=== PATIENT | female | born 2000 | race Caucasian/White ===

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

== ENCOUNTER 2022-10-29 21:52 | Inpatient (IN) | payer BC ==
[2022-10-29] MEDS ORDERED: LIDOCAINE 0.5% (PF) 5 MG/ML (50 ML SDV) SQ PRN (22:45)
[2022-10-29] MEDS ORDERED: TRANEXAMIC 1,000 MG/100ML-NACL 1,000 MG in EMPTY BAG 1 BAG IV PRN (22:45)
[2022-10-29] MEDS ORDERED: METHYLERGONOVINE 0.2 MG/ML 1 ML AMP IM PRN (22:45)
[2022-10-29] MEDS ORDERED: OXYTOCIN 30 UNITS/500 ML NS 30 UNIT in SALINE 1 500ML.BAG IV SCH (22:45)
[2022-10-29] MEDS ORDERED: CARBOPROST TROMETHAMINE 250 MCG/ML 1 ML AMP IM PRN (22:45)
[2022-10-29] MEDS ORDERED: OXYTOCIN 10 UNIT/ML 1 ML VIAL IM PRN (22:45)
[2022-10-29] MEDS ORDERED: miSOPROStoL 200 MCG TAB PO PRN (22:45)
[2022-10-29] MEDS ORDERED: TERBUTALINE 1 MG/ML VIAL SQ PRN (22:45)
[2022-10-29 22:55] LABS: Basophils # (A) 0.1 k/uL (0-0.2); Basophils % (A) 1 %; Eosinophils # (A) 0.2 k/uL (0-0.7); Eosinophils % (A) 2 %; HCT 32.2 % (34.0-46.0); HGB 11.5 gm/dL (11.4-16.0); Lymphocytes # (A) 2.1 k/uL (1.0-4.8); Lymphocytes % (A) 20 %; MCH 28.4 pg (25.0-35.0); MCHC 35.6 g/dL (31.0-37.0); MCV 79.7 fL (80.0-100.0); Mean Platelet Volume 7.8; Monocytes # (A) 0.7 k/uL (0-1.0); Monocytes % (A) 6 %; Neutrophils # (A) 7.1 k/uL (1.3-7.7); Neutrophils % (A) 69 %; Platelet Count 197 k/uL (150-450); RBC 4.04 m/uL (3.80-5.40); RDW 14.5 % (11.5-15.5); WBC 10.3 k/uL (3.8-10.6)
--- NOTE | 2022-10-30 00:13 | US ---
EXAM: US , Limited CLINICAL HISTORY: ITS.REASON US Reason: to verify position of fetus TECHNIQUE: Real-time limited ultrasound of the maternal uterus with image documentation. COMPARISON: No relevant prior studies available. FINDINGS: Position: Fetus is in vertex presentation. Heart rate: heart rate is 165 bpm. Other findings: No previous studies. IMPRESSION: Single viable intrauterine gestation in vertex presentation.
[2022-10-30] MEDS: LACTATED RINGERS 1,000 ML IV SCH ×3 (02:15→23:55)
--- NOTE | 2022-10-30 02:57 | P.HPOB ---
History of Present Illness H&P Date: 10/30/22 Chief Complaint: SROM 22 year old presents at 37 weeks 5 days with SROM since around 8 am yesterday morning. She was advised to come to the hospital right away but patien t refused and came when she is started having contractions over 12 hours later. Her cervix was 3/80/-2. She was felisha every 2-4 minutes. heart tones category 1. Review of Systems All systems: negative Constitutional: Denies chills, Denies fever Eyes: denies blurred vision, denies pain Ears, nose, mouth and throat: Denies headache, Denies sore throat Cardiovascular: Denies chest pain, Denies shortness of breath Respiratory: Denies cough Gastrointestinal: Denies abdominal pain, Denies diarrhea, Denies nausea, Denies vomiting Genitourinary: Denies dysuria, Denies hematuria Musculoskeletal: Denies myalgias Integumentary: Denies pruritus, Denies rash Neurological: Denies numbness, Denies weakness Psychiatric: Denies anxiety, Denies depression Endocrine: Denies fatigue, Denies weight change Past Medical History Past Medical History: Thyroid Disorder Additional Past Medical History / Comment(s): Hypothyroidism History of Any Multi-Drug Resistant Organisms: None Reported Past Surgical History: No Surgical Hx Reported Past Anesthesia/Blood Transfusion Reactions: No Reported Reaction Past Psychological History: No Psychological Hx Reported Smoking Status: Never smoker Past Alcohol Use History: None Reported Past Drug Use History: None Reported - Past Family History Mother Additional Family Medical History / Comment(s): heart defect, cardiomyopathy Medications and Allergies Home Medications Medication Instructions Recorded Confirmed Type Pnv No.154/Iron Fum/Folic Acid 1 capsule PO DAILY 10/29/22 10/29/22 History [ Plus Vitamin Tablet] Allergies Allergy/AdvReac Type Severity Reaction Status Date / Time No Known Allergies Allergy Verified 10/29/22 22:16 Exam Osteopathic Statement: *. No significant issues noted on an osteopathic structural exam other than those noted in the History and Physical/Consult. Vital Signs Temp Pulse Resp BP 10/29/22 22:21 97.5 F L 75 16 120/82 Intake and Output 10/29/22 10/29/22 10/30/22 14:59 22:59 06:59 Other: Weight 64.41 kg Heart: Regular rate and rhythm Lungs: Clear to auscultation bilaterally Abdomen: Soft, nontender Extremities: Negative Homans sign Results Result Diagrams: 10/29/22 22:40 Abnormal Lab Results - Last 24 Hours (Table) 10/29/22 Range/Units 22:40 Hct 32.2 L (34.0-46.0) % MCV 79.7 L (80.0-100.0) fL Assessment and Plan (1) SROM (spontaneous rupture of membranes) Current Visit: Yes Status: Acute Code(s): UVB7296 - SNOMED Code(s): 297674638 (2) 37 weeks gestation of Current Visit: Yes Status: Acute Code(s): Z3A.37 - 37 WEEKS GESTATION OF SNOMED Code(s): 38713352 Plan: 1. admit to [facility] 2. expectant management-pt refuses antibiotics and pitocin. 3. anticipate normal vaginal delivery
[2022-10-30] MEDS ORDERED: HYDROCORTISONE 2.5% RECTAL CREAM 30 GM TUBE RECTAL PRN (03:00)
[2022-10-30] MEDS ORDERED: ZOLPIDEM 5 MG TAB PO PRN (03:00)
[2022-10-30] MEDS ORDERED: diphenhydrAMINE 25 MG CAP PO PRN (03:00)
[2022-10-30] MEDS ORDERED: OXYTOCIN 30 UNITS/500 ML NS 30 UNIT in SALINE 1 500ML.BAG IV SCH (03:00)
[2022-10-30] MEDS ORDERED: BENZOCAINE/MENTHOL SPRAY 1 GM/SPRAY AEROSOL TOPICAL PRN (03:00)
[2022-10-30] MEDS ORDERED: LANOLIN CREAM 5 GM TUBE TOPICAL PRN (03:00)
[2022-10-30] MEDS ORDERED: diphenhydrAMINE 50 MG CAP PO PRN (03:00)
[2022-10-30] MEDS ORDERED: ACETAMINOPHEN TAB 325 MG TAB PO PRN (03:00)
[2022-10-30] MEDS ORDERED: diphenhydrAMINE 50 MG/ML 1 ML VIAL IVP PRN ×2 (03:00)
[2022-10-30] MEDS ORDERED: SIMETHICONE 80 MG CHEWABLE PO PRN (03:00)
--- NOTE | 2022-10-30 03:00 | P.PROBDLV ---
Vaginal Delivery Note - . Vaginal Delivery Note: 22 year old presents at 37 weeks 5 days with SROM since around 8 am yesterday morning. She was advised to come to the hospital right away but patient refused and came when she is started having contractions over 12 hours later. Her cervix was 3/80/-2. She was felisha every 2-4 minutes. heart tones category 1. Pt was completely dilated by 2 am. She pushed and delivered a viable female over intact perineum at 0224. Dr Chau was present for delivery and it was unremarkable. I presented when she was delivered for 4 minutes. I clamped and cut the cord after 5 minutes at request of the patient. Placenta delivered spontaneously, intact with 3 vessel cord at 0230. Vagina, cervix and perineum inspected. Second-degree perineal laceration and a periurethral laceration repaired with 3-0 Vicryl. Estimated blood loss 400 mL. Mother and baby in stable condition.
[2022-10-30] MEDS: IBUPROFEN 600 MG TAB PO PRN ×2 (03:34→22:24)
[2022-10-30] MEDS: SENNOSIDES-DOCUSATE SODIUM 1 EACH TAB PO SCH ×2 (08:17→22:23)
[2022-10-30 23:52] VITALS: TEMP 98
[2022-10-31 07:36] LABS: Basophils # (A) 0.1 k/uL (0-0.2); Basophils % (A) 0 %; Eosinophils # (A) 0.2 k/uL (0-0.7); Eosinophils % (A) 1 %; Lymphocytes # (A) 2.5 k/uL (1.0-4.8); Lymphocytes % (A) 19 %; MCH 28.2 pg (25.0-35.0); MCHC 34.2 g/dL (31.0-37.0); MCV 82.4 fL (80.0-100.0); Mean Platelet Volume 7.3; Monocytes # (A) 0.7 k/uL (0-1.0); Monocytes % (A) 5 %; Neutrophils # (A) 9.9 k/uL (1.3-7.7); Neutrophils % (A) 73 %; Platelet Count 203 k/uL (150-450); Poikilocytosis Slight; RBC 2.91 m/uL (3.80-5.40); RDW 15.1 % (11.5-15.5); WBC 13.6 k/uL (3.8-10.6)
[2022-10-31 07:52] LABS: HGB 8.2 gm/dL (11.4-16.0)
[2022-10-31 09:17] VITALS: BP 115/71; PULSE 79; RESP 18
[2022-10-31] MEDS: SENNOSIDES-DOCUSATE SODIUM 1 EACH TAB PO SCH (09:28)
--- NOTE | 2022-10-31 10:22 | P.DS ---
Providers Date of admission: 10/29/22 22:20 Expected date of discharge: 10/31/22 Attending physician: Salo Figueredo Primary care physician: Stated None Hospital Course: This is a 22-year-old female 2 para 1 at 37-6/7 weeks who presented in active labor. She delivered a viable female with scores of 9 at 1 minute and 9 at 5 minutes and weight of 6 lbs. 13 oz. on 10/30/2022 rather precipitously. She did have some heavier bleeding with delivery but it has slowed significantly and she denies having any heavy bleeding or clots since that time. She denies any shortness of breath, dizziness, or lightheadedness. Her pain is well-controlled with ibuprofen. She is breast-feeding. Vital signs are stable. Abdomen soft with fundus firm and nontender. Extremities show negative Homans. Impression is status post vaginal delivery day #1, acute blood loss anemia. Plan is to discharge home today. Routine instructions are given. She will continue on vitamins and will also t sue iron twice daily. She is instructed to follow up with Dr. Figueredo in the office in 6 weeks for check. She is advised to call the office if she has any further questions or concerns prior to her appointment time. She will be given a prescription for a breast pump. She will also be given ibuprofen. She is advised to call the office with any questions or concerns prior to her appointment time. Procedures: Spontaneous vaginal delivery of a viable female on 10/30/2022 Patient Condition at Discharge: Stable Plan - Discharge Summary New Discharge Prescriptions: New Ibuprofen [Motrin] 600 mg PO Q6HR PRN #60 tab PRN Reason: Mild Pain (Scale 1 To 3) Continue Pnv No.154/Iron Fum/Folic Acid [ Plus Vitamin Tablet] 1 capsule PO DAILY Discharge Medication List Pnv No.154/Iron Fum/Folic Acid [ Plus Vitamin Tablet] 1 capsule PO DAILY 10/29/22 [History] Ibuprofen [Motrin] 600 mg PO Q6HR PRN #60 tab 10/31/22 [Rx] Follow up Appointment(s)/Referral(s): Salo Figueredo MD [STAFF PHYSICIAN] - 12/08/22 9:45 am Activity/Diet/Wound Care/Special Instructions: Instructions 1. Do not begin any exercise program for 3 weeks. 2. Do not resume sexual relations for 3 weeks or longer if uncomfortable. 3. You may take tub baths or showers at any time. 4. You may use tampons if desired after 3 weeks. 5. Keep the area of episiotomy (stitches) clean and dry. 6. If you are not nursing, wear a good fitting, supportive bra during the day and limit fluid intake for at least 1 week to prevent breast engorgement. 7. Call the office, [phone], within the next week to make appointment for your 6 week checkup if it has not already been made. 8. Report any of the following occurrences to the doctor promptly: a. Heavy, excessive bleeding b. Chills, fever c. Burning or frequency of urination d. Pain or redness and breasts if nursing e. Increasing pain or swelling in episiotomy (stitches). In addition to the above instructions, the following additional should be followed: 1. No heavy lifting or straining (exercising) until after 6 week checkup. 2. Keep abdominal incision clean and dry: You may wear a dressing if more comfortable. 3. Make office appointment for 10 days after going home or as instructed by her doctor. Discharge Disposition: HOME SELF-CARE
== END 2022-10-31 11:59 | disposition home or self-care (01) | DRG 806 ==
LOC: FBPOP 21:52 → 4FBP 22:20
PROVIDERS: ADMIT Obstetrics & Gynecology; ATTEND Obstetrics & Gynecology
PROC: 10E0XZZ Delivery of Products of Conception, External Approach (ICD-10-PCS; principal; 2022-10-30)
PROC: 0KQM0ZZ Repair Perineum Muscle, Open Approach (ICD-10-PCS; principal; 2022-10-30)
DX: O99.284 Endocrine, nutritional and metabolic diseases complicating childbirth (principal); D62 Acute posthemorrhagic anemia; E03.9 Hypothyroidism, unspecified; O62.3 Precipitate labor; O99.02 Anemia complicating childbirth; O70.1 Second degree perineal laceration during delivery; O71.82 Other specified trauma to perineum and vulva; Z28.310 Unvaccinated for COVID-19; Z28.21 Immunization not carried out because of patient refusal; Z3A.37 37 weeks gestation of pregnancy; Z37.0 Single live birth
CPT/HCPCS: 59025; 76815; 84112; 85025; 86850; 86900; 86901; 99213